=== PATIENT | female | born 1980 | race Hispanic/Latino ===

== ENCOUNTER 2016-07-11 14:39 | Outpatient (CLI) | payer OTHER | END 2016-07-11 14:40 | disposition home or self-care (01) | LOC: LABLEX 14:39 | PROVIDERS: ATTEND Family Medicine | DX: M79.89 Other specified soft tissue disorders (principal) | CPT/HCPCS: 86430 ==

== ENCOUNTER 2017-05-14 14:05 | Emergency (ER) | payer OTHER, SELFPAY ==
[2017-05-14 14:30] LABS: Bilirubin Negative (Negative); Blood, Urine Trace (Negative); Clarity Clear (Clear); Glucose, Urine (Dipstick) Negative (Negative); Leukocyte Negative (Negative); Nitrite Negative (Negative); Protein, Urine (Dipstick) Negative (Neg-Trace); Urobilinogen 0.2 mg/dL (0.2-1.0); pH, Urine 5.5 (5.0-9.0)
[2017-05-14 14:32] LABS: Bacteria/HPF Rare-Few HPF (None Seen); Pregnancy Test - Urine (BHCG) Negative (Negative); Pregu Control Background? CLEAR/WHITE (CLR/WHITE); Pregu Control Bar Appear? YES (CONTROL BAR); RBC/HPF 0-3 HPF (0-3); Squamous Epithelial 0-3 HPF (0-3); WBC/HPF 0-3 HPF (0-3)
[2017-05-14] MEDS ORDERED: Ketorolac Tromethamine 30 MG/ML VIAL ONE (14:48)
[2017-05-14 15:00] LABS: #Basophils 0.1 thou/uL (0.0-0.2); #Eosinphils 0.3 thou/uL (0.0-0.7); #Lymphocytes 2.6 thou/uL (1.20-3.40); #Monocytes 0.5 thou/uL (0.11-0.59); #Neutrophils 5.8 thou/uL (1.40-6.50); %Basophils 1.5 % (0.0-1.0); %Eosinophils 2.8 % (0.0-10.0); %Lymphocytes 28.3 % (21.0-51.0); %Monocytes 4.9 % (0.0-10.0); %Neutrophils 62.6 % (42.0-75.0); Hemoglobin 12.7 g/dL (12.0-16.0); Mean Corpuscular HGB CONC 36.8 g/dL (32.0-36.0); Mean Corpuscular Hemoglobin 31.9 pg (27.0-31.0); Mean Corpuscular Volume 86.7 fl (81.0-99.0); Mean Platelet Volume 8.2 fL (7.4-10.4); Platelet Count 250 thou/uL (130-400); RBC Distribution Width 11.9 % (11.5-14.5); Red Blood Cell (RBC) Count 3.97 mill/uL (4.20-5.40); White Blood Cell (WBC) Count 9.2 thou/uL (4.8-10.8)
[2017-05-14 15:07] LABS: ALT (SGPT) 23 U/L (8-55); AST (SGOT) 17 U/L (5-34); Alkaline Phosphatase 55 U/L (40-150); Anion Gap 14 mmol/L (10-20); BUN (Urea Nitrogen) 13 mg/dL (7.0-18.7); Bilirubin, Total 0.4 mg/dL (0.2-1.2); Calc. Creatinine Clearance 0 mL/min (70-130); Calcium 8.7 mg/dL (7.8-10.44); Carbon Dioxide 22 mmol/L (22-29); Chloride 110 mmol/L (98-107); Estimated GFR-MDRD Greater than 90; Globulin 2.5 g/dL (2.4-3.5); Glucose 125 mg/dL (70-105); Lipase 41 U/L (8-78); Potassium 3.5 mmol/L (3.5-5.1); Protein, Total 6.5 g/dL (6.0-8.3); Sodium 142 mmol/L (136-145)
--- NOTE | 2017-05-14 18:30 | CT ---
CT ABDOMEN AND PELVIS WITHOUT CONTRAST: 05/14/2017 COMPARISON: Prior CT dated 05/19/2010. TECHNIQUE: Axial slices were acquired after giving IV contrast, and coronal and sagittal reconstructions were do ne. FINDINGS: The lung bases are clear. The liver, spleen, pancreas, gallbladder, adrenal glands, kidneys, and abd ominal aorta all appear normal. There is no distention of bowel to suggest obstruction. No inflamma tory change is seen around the bowel. A few loops of proximal small bowel are a bit more fluid-fille d, but the maximal diameter is 2.7 cm. This is a very nonspecific finding. No free air or free flui d is seen. Regarding the right lower quadrant, there is no inflammatory change here. There has been a prior appendectomy. CT of the pelvis shows no adnexal masses or inflammatory changes in the right lower quadrant. The pa bharath's cervix seems more prominent than usual and somewhat lucent. I do not know if there is a christiana le fluid around it or not. It might be useful to obtain an elective pelvic ultrasound on this patien t to investigate this area. IMPRESSION: Aside from the slight prominence of the cervix, listed above, the exam is unremarkable. POS: HOME
== END 2017-05-14 16:29 | disposition home or self-care (01) ==
LOC: BURERS 14:05
DX: R10.31 Right lower quadrant pain (principal); G43.909 Migraine, unspecified, not intractable, without status migrainosus; J45.909 Unspecified asthma, uncomplicated; Z87.891 Personal history of nicotine dependence
CPT/HCPCS: 74177; 80053; 81003; 81015; 81025; 83690; 85025; 96361; 96374; J1885

== ENCOUNTER 2018-05-02 12:07 | Emergency (ER) | payer SELFPAY ==
[2018-05-02] MEDS ORDERED: Morphine 4 MG/ML VIAL ONE (12:38)
[2018-05-02 13:29] LABS: #Basophils 0.1 thou/uL (0.0-0.2); #Eosinphils 0.2 thou/uL (0.0-0.7); #Lymphocytes 3.1 thou/uL (1.20-3.40); #Monocytes 0.6 thou/uL (0.11-0.59); #Neutrophils 6.2 thou/uL (1.40-6.50); %Basophils 1.1 % (0.0-1.0); %Eosinophils 1.7 % (0.0-10.0); %Lymphocytes 30.4 % (21.0-51.0); %Monocytes 5.6 % (0.0-10.0); %Neutrophils 61.1 % (42.0-75.0); Hemoglobin 13.2 g/dL (12.0-16.0); Mean Corpuscular HGB CONC 35.3 g/dL (32.0-36.0); Mean Corpuscular Hemoglobin 31.7 pg (27.0-31.0); Mean Corpuscular Volume 89.8 fL (78.0-98.0); Mean Platelet Volume 7.7 fL (7.4-10.4); Platelet Count 244 thou/uL (130-400); RBC Distribution Width 11.7 % (11.5-14.5); Red Blood Cell (RBC) Count 4.16 mill/uL (4.20-5.40); White Blood Cell (WBC) Count 10.1 thou/uL (4.8-10.8)
[2018-05-02 13:44] LABS: Anion Gap 13 mmol/L (10-20); BUN (Urea Nitrogen) 9 mg/dL (7.0-18.7); Calc. Creatinine Clearance 0 mL/min (70-130); Calcium 9.2 mg/dL (7.8-10.44); Carbon Dioxide 25 mmol/L (22-29); Chloride 108 mmol/L (98-107); Estimated GFR-MDRD Greater than 90; Glucose 92 mg/dL (70-105); Potassium 3.9 mmol/L (3.5-5.1); Sodium 142 mmol/L (136-145)
--- NOTE | 2018-05-02 19:36 | RAD ---
CHEST TWO VIEWS 05/02/18 The heart is normal in size and the lungs are clear. No infiltrate or effusion was seen. There is no mediastinal abnormality or tracheal deviation. IMPRESSION: No acute thoracic finding. POS: HOME
== END 2018-05-02 14:03 | disposition home or self-care (01) ==
LOC: BURERS 12:07
DX: M54.6 Pain in thoracic spine (principal); G43.909 Migraine, unspecified, not intractable, without status migrainosus; Z87.891 Personal history of nicotine dependence
CPT/HCPCS: 36415; 71046; 80048; 85025; 85379; 93005; 96372; J2270

== ENCOUNTER 2018-06-28 17:22 | Emergency (ER) | payer SELFPAY ==
[2018-06-28] MEDS ORDERED: Ketorolac Tromethamine 30 MG/ML VIAL ONE (17:43)
[2018-06-28] MEDS ORDERED: methylPREDNISolone Sod Succ/PF 125 MG/2 ML VIAL ONE (17:43)
[2018-06-28] MEDS ORDERED: Metoclopramide HCl 10 MG/2 ML VIAL ONE (17:43)
[2018-06-28] MEDS ORDERED: diphenhydrAMINE 50 MG/ML VIAL ONE (17:43)
== END 2018-06-28 19:04 | disposition home or self-care (01) ==
LOC: BURERS 17:22
DX: G43.909 Migraine, unspecified, not intractable, without status migrainosus (principal); Z79.899 Other long term (current) drug therapy
CPT/HCPCS: 96361; 96374; 96375; J1200; J1885; J2765; J2930

== ENCOUNTER 2018-07-21 20:36 | Emergency (ER) | payer SELFPAY ==
[2018-07-21] MEDS ORDERED: Lorazepam 0.5 MG TAB ONE (21:16)
--- NOTE | 2018-07-21 21:34 | RAD ---
RADIOGRAPH CHEST 1 VIEW: DATE: 07/21/2018 HISTORY: 38-year-old female with dyspnea FINDINGS: The visualized lung hurst are clear. The cardiomediastinal silhouette and hilar shadows are normal. The lateral costophrenic angles are sharp. The osseous structures appear normal. There is no pneumothorax. IMPRESSION: Negative.
[2018-07-21 21:42] LABS: #Basophils 0.2 thou/uL (0.0-0.2); #Eosinphils 0.3 thou/uL (0.0-0.7); #Lymphocytes 3.6 thou/uL (1.20-3.40); #Monocytes 0.5 thou/uL (0.11-0.59); #Neutrophils 5.5 thou/uL (1.40-6.50); %Basophils 1.6 % (0.0-1.0); %Eosinophils 2.7 % (0.0-10.0); %Lymphocytes 35.7 % (21.0-51.0); %Monocytes 5.1 % (0.0-10.0); %Neutrophils 54.9 % (42.0-75.0); Hemoglobin 13.5 g/dL (12.0-16.0); Mean Corpuscular HGB CONC 32.9 g/dL (32.0-36.0); Mean Corpuscular Hemoglobin 29.8 pg (27.0-31.0); Mean Corpuscular Volume 90.5 fL (78.0-98.0); Mean Platelet Volume 7.5 fL (7.4-10.4); Platelet Count 310 thou/uL (130-400); RBC Distribution Width 11.5 % (11.5-14.5); Red Blood Cell (RBC) Count 4.53 mill/uL (4.20-5.40)
[2018-07-21 21:55] LABS: CO2 Tension (PvCO2) 25.5 mmHg (40.0-50.0); Chloride 107 mmol/L (98-107); Hemoglobin - Calc 13.7 g/dL (12.0-16.0); O2 Tension (PvO2) 47.1 mmHg (35.0-45.0); Potassium 3.3 mmol/L (3.5-5.1); Sodium 142 mmol/L (138-145); T. Carbon Dioxide 19.8 mmol/L (22.0-28.0); pH (Venous) 7.479 (7.320-7.430); vO2 Saturation-calc 86.6 % (60.0-85.0)
[2018-07-21 22:00] LABS: ALT (SGPT) 37 U/L (8-55); AST (SGOT) 33 U/L (5-34); Albumin 4.6 g/dL (3.5-5.0); Alkaline Phosphatase 74 U/L (40-150); Anion Gap 17 mmol/L (10-20); BUN (Urea Nitrogen) 9 mg/dL (7.0-18.7); Bilirubin, Total 0.5 mg/dL (0.2-1.2); Calc. Creatinine Clearance 0 mL/min (70-130); Calcium 9.7 mg/dL (7.8-10.44); Carbon Dioxide 19 mmol/L (22-29); Chloride 109 mmol/L (98-107); Estimated GFR-MDRD Greater than 90; Globulin 2.8 g/dL (2.4-3.5); Glucose 105 mg/dL (70-105); Potassium 3.3 mmol/L (3.5-5.1); Protein, Total 7.4 g/dL (6.0-8.3); Sodium 142 mmol/L (136-145)
[2018-07-21 22:11] LABS: Bilirubin Negative (Negative); Blood, Urine Trace (Negative); Clarity Clear (Clear); Glucose, Urine (Dipstick) Negative (Negative); Leukocyte Negative (Negative); Nitrite Negative (Negative); Protein, Urine (Dipstick) Negative (Neg-Trace); Specific Gravity, Urine 1.015 (1.005-1.030); Urobilinogen 0.2 mg/dL (0.2-1.0)
[2018-07-21 22:17] LABS: Amphetamine Not Detected (NotDetected); Barbiturates Screen Not Detected (NotDetected); Benzodiazepine Screen Not Detected (NotDetected); Cocaine Metabolite Screen Not Detected (NotDetected); Medtox Control Line Valid? VALID (VALID); Methadone Not Detected (NotDetected); Methamphetamine Not Detected (NotDetected); Opiate Screen Not Detected (NotDetected); Oxycodone Screen Not Detected (NotDetected); Phencyclidine (PCP) Not Detected (NotDetected); THC/Cannabinoid Screen Not Detected (NotDetected); Tricyclic Screen Not Detected (NotDetected)
[2018-07-21 22:22] LABS: RBC/HPF 0-3 HPF (0-3); Squamous Epithelial 0-3 HPF (0-3); WBC/HPF 0-3 HPF (0-3)
[2018-07-21 22:23] LABS: Other Microscopic Description FEW CLUE CELLS
== END 2018-07-21 22:30 | disposition home or self-care (01) ==
LOC: BURERS 20:36
DX: F45.8 Other somatoform disorders (principal)
CPT/HCPCS: 36415; 71045; 80053; 80306; 81003; 81015; 82330; 82803; 85025; 85379; 94760

== ENCOUNTER 2019-11-26 09:03 | Outpatient (CLI) | payer OTHER ==
[2019-11-26 10:24] LABS: #Basophils 0.1 thou/uL (0.0-0.2); #Eosinphils 0.1 thou/uL (0.0-0.7); #Lymphocytes 2.8 thou/uL (1.20-3.40); #Monocytes 0.3 thou/uL (0.11-0.59); #Neutrophils 4.3 thou/uL (1.40-6.50); %Basophils 1.7 % (0.0-1.0); %Eosinophils 1.5 % (0.0-10.0); %Lymphocytes 36.3 % (21.0-51.0); %Monocytes 4.3 % (0.0-10.0); %Neutrophils 56.2 % (42.0-75.0); Hemoglobin 12.7 g/dL (12.0-16.0); Mean Corpuscular HGB CONC 31.7 g/dL (32.0-36.0); Mean Corpuscular Volume 94.6 fL (78.0-98.0); Mean Platelet Volume 8.4 fL (7.4-10.4); Platelet Count 298 thou/uL (130-400); Red Blood Cell (RBC) Count 4.25 mill/uL (4.20-5.40); White Blood Cell (WBC) Count 7.6 thou/uL (4.8-10.8)
[2019-11-26 10:27] LABS: ALT (SGPT) 29 U/L (8-55); AST (SGOT) 16 U/L (5-34); Albumin 4.7 g/dL (3.5-5.0); Alkaline Phosphatase 71 U/L (40-110); Anion Gap 13 mmol/L (10-20); BUN (Urea Nitrogen) 14 mg/dL (7.0-18.7); Bilirubin, Total 0.6 mg/dL (0.2-1.2); Calc. Creatinine Clearance 0 mL/min (70-130); Carbon Dioxide 21 mmol/L (22-29); Cardiac Risk 4.1 (Less than 4.5); Chloride 110 mmol/L (98-107); Cholesterol 189 mg/dl (< 200 Desired); Estimated GFR-MDRD Greater than 90; Globulin 2.4 g/dL (2.4-3.5); Glucose 78 mg/dL (70-105); HDL Cholesterol 46 mg/dL (>60 Neg Risk); LDL Cholesterol, Calculated 108 mg/dL; Potassium 3.7 mmol/L (3.5-5.1); Protein, Total 7.1 g/dL (6.0-8.3); Sodium 140 mmol/L (136-145); Triglycerides 177 mg/dL (Less than 150)
[2019-11-30 15:41] LABS: ANA Symphony (Qualitative) Negative (Negative); ANA Symphony (Quantitative) 0.1 Ratio (< 0.7 Negative); EliA RAS New Method **** NEW METHOD ****; EliA Thy New Method **** NEW METHOD ****; EliA Vaculitis New Method **** NEW METHOD ****; Mitochondrial Ab 3.7 U/mL (<4 Negative); Thyroid Peroxidase IgG Ab Less than 4.0 IU/mL (<25 Normal); dsDNA IgG Antibody 0.5 IU/mL (<10 Negative)
== END 2019-11-26 09:04 | disposition home or self-care (01) ==
LOC: BURLAB 09:03
PROVIDERS: ATTEND Family Medicine
DX: Z13.6 Encounter for screening for cardiovascular disorders (principal); R53.83 Other fatigue; M25.50 Pain in unspecified joint
CPT/HCPCS: 36415; 80053; 80061; 83516; 84443; 85025; 86038; 86160; 86200; 86225; 86376

== ENCOUNTER 2019-12-02 11:30 | Outpatient (CLI) | payer SELFPAY | END 2019-12-02 11:31 | disposition home or self-care (01) | LOC: BURLAB 11:30 | PROVIDERS: ATTEND Nurse Practitioner Family | DX: R10.13 Epigastric pain (principal) | CPT/HCPCS: 36415; 83690; 86677 ==

== ENCOUNTER 2023-01-09 09:55 | Outpatient (CLI) | payer OTHER ==
[2023-01-09 10:51] LABS: #Basophils 0.1 thou/uL (0.0-0.2); #Eosinphils 0.1 thou/uL (0.0-0.7); #Lymphocytes 2.3 thou/uL (1.20-3.40); #Monocytes 0.4 thou/uL (0.11-0.59); #Neutrophils 4.1 thou/uL (1.40-6.50); %Basophils 1.4 % (0.0-1.0); %Eosinophils 1.5 % (0.0-10.0); %Monocytes 5.2 % (0.0-10.0); %Neutrophils 58.8 % (42.0-75.0); Hematocrit 36.8 % (36.0-47.0); Mean Corpuscular HGB CONC 32.5 g/dL (32.0-36.0); Mean Corpuscular Hemoglobin 29.6 pg (27.0-31.0); Mean Corpuscular Volume 90.8 fl (78.0-98.0); Mean Platelet Volume 7.9 fL (7.4-10.4); Platelet Count 282 10x3/uL (130-400); RBC Distribution Width 11.9 % (11.5-14.5); Red Blood Cell (RBC) Count 4.05 mill/uL (4.20-5.40)
[2023-01-09 11:29] LABS: ALT (SGPT) 17 U/L (8-55); AST (SGOT) 15 U/L (5-34); Albumin 4.5 g/dL (3.5-5.0); Alkaline Phosphatase 50 U/L (40-110); Anion Gap 14 mmol/L (10-20); BUN (Urea Nitrogen) 10 mg/dL (7.0-18.7); Bilirubin, Total 0.5 mg/dL (0.2-1.2); CK (CPK) 63 U/L (29-168); CRP (Inflammatory) Less than 0.50 mg/dL (= or < 0.5); Calc. Creatinine Clearance 0 mL/min (70-130); Calcium 8.8 mg/dL (7.8-10.44); Carbon Dioxide 24 mmol/L (22-29); Cardiac Risk 4.5 (Less than 4.5); Chloride 110 mmol/L (98-107); Cholesterol 221 mg/dl (< 200 Desired); Estimated GFR 113; Globulin 2.3 g/dL (2.4-3.5); Glucose 83 mg/dL (70-105); HDL Cholesterol 49 mg/dL (>60 Neg Risk); LDL Cholesterol, Calculated 145 mg/dL; Potassium 3.8 mmol/L (3.5-5.1); Protein, Total 6.8 g/dL (6.0-8.3); Sodium 144 mmol/L (136-145); Triglycerides 135 mg/dL (Less than 150)
[2023-01-09 19:39] LABS: Vitamin D, 25 Hydroxy 11.8 ng/ml (> 30.0)
== END 2023-01-09 09:56 | disposition home or self-care (01) ==
LOC: BURLAB 09:55
PROVIDERS: ATTEND Family Medicine
DX: Z13.6 Encounter for screening for cardiovascular disorders (principal); E55.9 Vitamin D deficiency, unspecified; M25.50 Pain in unspecified joint; R53.83 Other fatigue; R60.9 Edema, unspecified; Z79.899 Other long term (current) drug therapy
CPT/HCPCS: 36415; 80053; 80061; 82306; 82550; 82607; 83516; 83880; 84443; 84550; 85025; 86038; 86140; 86160; 86200; 86225; 86376

== ENCOUNTER 2023-07-06 07:58 | Outpatient (CLI) | payer OTHER | END 2023-07-06 07:59 | disposition home or self-care (01) | LOC: BURCT 07:58 | PROVIDERS: ATTEND Family Medicine | DX: R10.9 Unspecified abdominal pain (principal) | CPT/HCPCS: 74177 ==

== ENCOUNTER 2024-10-25 20:27 | Emergency (ER) | payer OTHER, SELFPAY ==
[2024-10-25] MEDS ORDERED: Prochlorperazine 10 MG/2 ML VIAL ONE (20:53)
[2024-10-25] MEDS ORDERED: diphenhydrAMINE 50 MG/ML VIAL ONE (20:53)
[2024-10-25 21:03] LABS: #Basophils 0.2 thou/uL (0.0-0.2); #Eosinophils 0.1 thou/uL (0.0-0.7); #Lymphocytes 2.3 thou/uL (1.20-3.40); #Monocytes 0.6 thou/uL (0.11-0.59); #Neutrophils 10.9 thou/uL (1.40-6.50); %Basophils 1.5 % (0.0-1.0); %Eosinophils 0.5 % (0.0-10.0); %Lymphocytes 16.4 % (21.0-51.0); %Monocytes 4.3 % (0.0-10.0); %Neutrophils 77.3 % (42.0-75.0); Hematocrit 36.4 % (36.0-47.0); Hemoglobin 12.8 g/dL (12.0-16.0); Mean Corpuscular Hemoglobin 29.3 pg (27.0-31.0); Mean Corpuscular Volume 83.3 fl (78.0-98.0); Platelet Count 347 10x3/uL (130-400); Red Blood Cell (RBC) Count 4.37 mill/uL (4.20-5.40); White Blood Cell (WBC) Count 14.0 10x3/uL (4.8-10.8)
[2024-10-25 21:12] LABS: BHCG - Serum Negative (NEGATIVE); Pregs Control Background? CLEAR/WHITE (CLR/WHITE); Pregs Control Bar Appear? YES (CONTROL BAR)
[2024-10-25 21:22] LABS: ALT (SGPT) 35 U/L (Less than 34); AST (SGOT) 31 U/L (11-34); Albumin 4.3 g/dL (3.1-4.5); Alkaline Phosphatase 85 U/L (40-110); Anion Gap 17 mmol/L (10-20); BUN (Urea Nitrogen) 11 mg/dL (7.0-18.7); Bilirubin, Total 0.4 mg/dL (0.3-1.2); Calc. Creatinine Clearance 0 mL/min (70-130); Calcium 8.9 mg/dL (7.8-10.44); Carbon Dioxide 19 mmol/L (22-29); Chloride 108 mmol/L (98-107); Globulin 2.9 g/dL (2.4-3.5); Glucose 114 mg/dL (70-105); Lipase 33 U/L (8-78); Potassium 3.5 mmol/L (3.5-5.1); Sodium 140 mmol/L (136-145)
== END 2024-10-25 21:56 | disposition home or self-care (01) ==
LOC: BURERS 20:27
DX: G43.909 Migraine, unspecified, not intractable, without status migrainosus (principal)
CPT/HCPCS: 80053; 83690; 84703; 85025; 96361; 96374; 96375; J0780; J1200